=== PATIENT | male | born 1990 | race African-American/Black ===

== ENCOUNTER 2016-11-21 17:58 | Emergency (ER) | payer OTHER ==
[~2016-11-21 17:58] MED LIST: CONCERTA PO; DEPAKOTE PO; KEPPRA750 MG PO; LAMICTAL PO; LORTAB 5/500 TA1 TA1 PO; PEN-VEE K PO; RITALIN LA20 MG PO; RITALIN PO; TOPAMAX PO
== END 2016-11-21 21:50 | disposition home or self-care (01) ==
LOC: CED 17:58 → CFTX 17:58
DX: S61.411A Laceration without foreign body of right hand, initial encounter (principal); W26.0XXA Contact with knife, initial encounter; Y92.9 Unspecified place or not applicable
CPT/HCPCS: 12002; 99283